=== PATIENT | male | born 1990 | race Caucasian/White ===

== ENCOUNTER 2024-11-14 19:15 | Emergency (ER) | payer OTHER ==
[~2024-11-14] VITALS: Ht 185.4 cm; Wt 149.7 kg
[2024-11-14] MEDS ORDERED: KETOROLAC TROMETHAMINE 60 MG/2 ML VIAL IM ONE (20:45)
[2024-11-14] MEDS ORDERED: PSEUDOEPHEDRINE HCL 30 MG TAB PO ONE (20:45)
[2024-11-14 21:16] LABS: CORONAVIRUS COVID-19 AG NEGATIVE (NEGATIVE); INFLUENZA A AG POSITIVE (NEGATIVE); INFLUENZA B AG NEGATIVE (NEGATIVE)
[2024-11-14] MEDS ORDERED: OSELTAMIVIR PHOSPHATE 75 MG HOME.PACK PO ONE (22:15)
[2024-11-14] MEDS ORDERED: methylPREDNISolone 4 MG HOME.PACK PO ONE (22:15)
[2024-11-14 22:22] VITALS: BP 140/86
== END 2024-11-14 22:24 | disposition home or self-care (01) ==
LOC: ED 19:15
PROVIDERS: Family Medicine
DX: J10.1 Influenza due to other identified influenza virus with other respiratory manifestations (principal); I10 Essential (primary) hypertension; E66.9 Obesity, unspecified
CPT/HCPCS: 36415; 96372; 99283; A9270; J1885